=== PATIENT | female | born 1935 | race Hispanic/Latino ===

== ENCOUNTER 2017-05-30 10:33 | Emergency (ER) | payer MEDICARE ==
[2017-05-30 11:48] LABS: BASOPHILS % (AUTO) 0.4 % (0.0-5.0); EOSINOPHILS % (AUTO) 0.8 % (0.0-8.0); HEMATOCRIT 37.3 % (36-48); LYMPHOCYTES % (AUTO) 12.6 % (21.0-51.0); MEAN CORPUSCULAR HEMOGLOBIN 29.4 pg (27.0-33.0); MEAN CORPUSCULAR HGB CONC 33.5 g/dL (32.0-36.0); MEAN CORPUSCULAR VOLUME 87.8 fL (79-99); MONOCYTES % (AUTO) 7.9 % (3.0-13.0); NEUTROPHILS % (AUTO) 78.3 % (40.0-77.0); PLATELET COUNT (AUTO) 220 K/uL (130-400); RED BLOOD CELL COUNT(AUTO) 4.25 MIL/uL (4.00-5.50); RED CELL DISTRIBUTION WIDTH 14.3 % (11.0-15.5); WHITE BLOOD COUNT (AUTO) 11.8 K/uL (4.8-10.8)
[2017-05-30 12:01] LABS: ALBUMIN 3.3 g/dL (3.5-5.0); BILIRUBIN,TOTAL 0.6 mg/dL (0.2-1.0); TOTAL PROTEIN, SERUM 7.9 g/dL (6.0-8.3)
== END 2017-05-30 13:42 | disposition home or self-care (01) ==
LOC: EDH 10:33
DX: R19.7 Diarrhea, unspecified (principal); I10 Essential (primary) hypertension; Z98.890 Other specified postprocedural states
CPT/HCPCS: 36415; 80053; 85025

== ENCOUNTER 2018-04-08 09:56 | Emergency (ER) | payer MEDICARE ==
[2018-04-08] MEDS ORDERED: DiphenhydrAMINE HCL 50 MG/ML VIAL ONE (10:31)
[2018-04-08] MEDS ORDERED: FAMOTIDINE/PF 20 MG/2 ML VIAL IV ONE (10:32)
[2018-04-08] MEDS ORDERED: METHYLPREDNISOLONE SOD SUCC 125MG/2ML VIAL ONE (10:32)
[2018-04-08 10:37] LABS: BASOPHILS % (AUTO) 0.7 % (0.0-5.0); EOSINOPHILS % (AUTO) 2.2 % (0.0-8.0); HEMATOCRIT 38.1 % (36-48); LYMPHOCYTES % (AUTO) 22.7 % (21.0-51.0); MEAN CORPUSCULAR HEMOGLOBIN 28.4 pg (27.0-33.0); MEAN CORPUSCULAR HGB CONC 32.2 g/dL (32.0-36.0); MEAN CORPUSCULAR VOLUME 88.2 fL (79-99); MONOCYTES % (AUTO) 5.3 % (3.0-13.0); NEUTROPHILS % (AUTO) 69.1 % (40.0-77.0); PLATELET COUNT (AUTO) 181 K/uL (130-400); RED BLOOD CELL COUNT(AUTO) 4.32 MIL/uL (4.00-5.50); RED CELL DISTRIBUTION WIDTH 13.8 % (11.0-15.5); WHITE BLOOD COUNT (AUTO) 8.2 K/uL (4.8-10.8)
[2018-04-08 10:50] LABS: CREATININE 1.1 mg/dL (0.5-1.5); POTASSIUM 3.4 mmol/L (3.5-5.1)
[2018-04-08 10:51] LABS: ALBUMIN 3.2 g/dL (3.5-5.0); BILIRUBIN,TOTAL 0.4 mg/dL (0.2-1.0); TOTAL PROTEIN, SERUM 7.5 g/dL (6.0-8.3)
[2018-04-08 10:59] LABS: APPEARANCE,URINE Clear (CLEAR); BILIRUBIN,URINE Negative (NEGATIVE); COLOR,URINE Yellow (YELLOW); GLUCOSE, URINE (UA) Negative (NEGATIVE); KETONES,URINE Negative (NEGATIVE); LEUKOCYTE ESTERASE ,URINE Large (NEGATIVE); NITRATE,URINE Negative (NEGATIVE); OCCULT BLOOD,URINE Trace (NEGATIVE); PROTEIN,URINE Negative (NEGATIVE)
[2018-04-08 11:33] LABS: BACTERIA,URINE Rare /HPF (None Seen); RBC,URINE 0-1 /HPF (0-1)
[2018-04-08 11:34] LABS: SQUAMOUS EPITHELIAL CELL,UR Rare /HPF (0-2)
== END 2018-04-08 12:05 | disposition home or self-care (01) ==
LOC: EDH 09:56
DX: L50.0 Allergic urticaria (principal); I10 Essential (primary) hypertension
CPT/HCPCS: 36415; 71045; 80053; 81001; 82550; 84484; 85025; 93005; 96374; 96375; 99284; J1200; J2930; J3490

== ENCOUNTER 2018-06-08 14:13 | Inpatient (IN) | payer MEDICARE ==
[~2018-06-08] VITALS: Ht 152.4 cm; Wt 84.5 kg
[2018-06-08] MEDS ORDERED: ONDANSETRON HCL 4 MG/2 ML VIAL ONE (14:50)
[2018-06-08] MEDS ORDERED: SODIUM CHLORIDE 0.9% 200 ML IV ONE (14:53)
[2018-06-08] MEDS ORDERED: SODIUM CHLORIDE 0.9% 50 ML IV ONE (14:53)
[2018-06-08 16:06] LABS: CREATININE 1.7 mg/dL (0.5-1.5); INR 1.09 (0.85-1.15); POTASSIUM 3.3 mmol/L (3.5-5.1); PROTHROMBIN TIME 11.4 SEC (9.6-11.6)
[2018-06-08 16:16] LABS: ALBUMIN 3.3 g/dL (3.5-5.0); BILIRUBIN,TOTAL 0.7 mg/dL (0.2-1.0); TOTAL PROTEIN, SERUM 7.7 g/dL (6.0-8.3)
[2018-06-08 16:34] LABS: APPEARANCE,URINE SL CLOUDY (CLEAR); BILIRUBIN,URINE SMALL (NEGATIVE); COLOR,URINE ORANGE (YELLOW); GLUCOSE, URINE (UA) NEGATIVE (NEGATIVE); KETONES,URINE 5 mg/dL (NEGATIVE); LEUKOCYTE ESTERASE ,URINE SMALL (NEGATIVE); NITRATE,URINE NEGATIVE (NEGATIVE); OCCULT BLOOD,URINE MODERATE (NEGATIVE); PH,URINE 5.5 (5.0-8.0); PROTEIN,URINE TRACE (NEGATIVE)
[2018-06-08 16:43] LABS: FINE GRANULAR CASTS,URINE 0-2 /LPF (None Seen)
[2018-06-08 16:44] LABS: MUCUS,URINE Few LPF (None Seen)
[2018-06-08 16:45] LABS: BACTERIA,URINE Moderate /HPF (None Seen); SQUAMOUS EPITHELIAL CELL,UR 30-50 /HPF (0-2)
[2018-06-08] MEDS ORDERED: HYDRALAZINE HCL 20 MG/ML VIAL IV PRN (16:45)
[2018-06-08] MEDS ORDERED: MORPHINE SULFATE 2 MG/ML 1ML SYG IV PRN (16:45)
[2018-06-08] MEDS ORDERED: LEVOFLOXACIN 500 MG/D5W 100 ML 100 ML IV SCH ×2 (16:45→21:00)
[2018-06-08] MEDS ORDERED: ACETAMINOPHEN 325 MG TAB PO PRN ×2 (16:45)
[2018-06-08] MEDS ORDERED: ONDANSETRON HCL 4 MG/2 ML VIAL IV PRN (16:45)
[2018-06-08] MEDS ORDERED: METRONIDAZOLE 500MG/100ML BAG 100 ML IV SCH (16:45)
[2018-06-08 16:57] LABS: BASOPHILS % (AUTO) 0.1 % (0.0-5.0); HEMATOCRIT 43.7 % (36-48); LYMPHOCYTES % (AUTO) 5.3 % (21.0-51.0); MEAN CORPUSCULAR HEMOGLOBIN 28.2 pg (27.0-33.0); MEAN CORPUSCULAR HGB CONC 32.4 g/dL (32.0-36.0); MEAN CORPUSCULAR VOLUME 87.2 fL (79-99); MONOCYTES % (AUTO) 3.3 % (3.0-13.0); NEUTROPHILS % (AUTO) 91.3 % (40.0-77.0); PLATELET COUNT (AUTO) 185 K/uL (130-400); RED BLOOD CELL COUNT(AUTO) 5.01 MIL/uL (4.00-5.50); RED CELL DISTRIBUTION WIDTH 14.4 % (11.0-15.5)
[2018-06-08] MEDS ORDERED: POTASSIUM CHLORIDE 10% ELIXIR 20 MEQ/15 ML UDCUP ONE (16:57)
[2018-06-08] MEDS ORDERED: MAGNESIUM OXIDE 400 MG TABLET PO ONE (16:57)
[2018-06-08] MEDS ORDERED: ACETAMINOPHEN 325 MG TAB ONE (16:58)
[2018-06-08] MEDS ORDERED: HYOSCYAMINE SULFATE 0.125 MG TAB.SUBL SL ONE (16:58)
[2018-06-08 17:16] LABS: CRP QUANTITATIVE 74.6 mg/L (0.00-9.0); MAGNESIUM 2.5 mg/dL (1.80-2.40); PHOSPHORUS 4.7 mg/dL (2.5-4.9); THYROID STIMULATING HORMONE 0.53 uIU/mL (0.36-3.74)
[2018-06-08 19:00] VITALS: BP 142/56
[2018-06-08] MEDS ORDERED: LORA10CA9 PO (19:44)
[2018-06-08] MEDS ORDERED: METO-408 PO (19:44)
[2018-06-08] MEDS ORDERED: FURO20TA4 PO (19:44)
[2018-06-08] MEDS ORDERED: ASPI-555 PO (19:44)
[2018-06-08] MEDS ORDERED: LISI1TAB11 PO (19:44)
[2018-06-08] MEDS: METRONIDAZOLE 500 MG TABLET PO SCH (20:33)
[2018-06-08] MEDS: SODIUM CHLORIDE 0.9% 1000ML 1,000 ML IV SCH (20:33)
[2018-06-08] MEDS: METOPROLOL TARTRATE 25 MG TAB PO SCH (20:33)
[2018-06-08] MEDS: FAMOTIDINE/PF 20 MG/2 ML VIAL IV SCH (20:53)
[2018-06-09] VITALS (7 sets, daily range): BP systolic 105–149; BP diastolic 38–56
[2018-06-09 00:51] LABS: CREATINE KINASE, TOTAL 138 U/L (21-232); MYOGLOBIN 521 ng/mL (10-92); TROPONIN I < 0.04 ng/mL (0.00-0.06)
--- NOTE | 2018-06-09 02:01 | NUR ---
BLEEDING Pt went to the bathroom,notified per staff,pt has bright red blood coming out.Daughter states pt has Hx of Diverticulitis.Notified Francisco CONTE.he ordered H and h in am.
[2018-06-09] MEDS: SODIUM CHLORIDE 0.9% 1000ML 1,000 ML IV SCH ×4 (02:17→21:10)
[2018-06-09 04:40] LABS: HEMATOCRIT 34.9 % (36-48)
[2018-06-09] MEDS: METRONIDAZOLE 500 MG TABLET PO SCH ×3 (05:13→21:10)
[2018-06-09] MEDS ORDERED: ASPIRIN 325MG EC TAB 325 MG TABLET.DR PO SCH (09:00)
[2018-06-09] MEDS: NITROGLYCERIN 0.2 MG/HR PATCH TD SCH (09:00)
[2018-06-09] MEDS: METOPROLOL TARTRATE 25 MG TAB PO SCH ×2 (09:00→21:10)
[2018-06-09 09:30] LABS: CREATINE KINASE, TOTAL 148 U/L (21-232); MYOGLOBIN 415 ng/mL (10-92); TROPONIN I < 0.04 ng/mL (0.00-0.06)
[2018-06-09] MEDS: FAMOTIDINE/PF 20 MG/2 ML VIAL IV SCH (10:11)
--- NOTE | 2018-06-09 10:14 | NUR ---
did not give her med of asa .325 ,mg po due to some active bleeding ,, lopressor . 25 mg po . b/p of 90/40 hr of 64, and nitroglycerin 0.2 mg patch. . due to low b/p ..
--- NOTE | 2018-06-09 11:00 | NUR ---
PT HAD SOME, SM MUCOUS , BLOODY BM.
--- NOTE | 2018-06-09 13:33 | NUR ---
DCP CM met with pt discussed dc plans. Pt is independent prior to admission, lives at home with spouse. Pt has a cane, shower chair, and provider. Denies any equipments/service. Pt feels safe to go back home, spouse and son able to assist with transportation and needs as necessary. DC plan to home once stable. CM to cont to follow up. Addendum: 06/09/18 at 1335 by MELONY ALMANZAR LVN CM Amended: Links added.
--- NOTE | 2018-06-09 14:26 | NUR ---
RD Notification - Trigger Patient with Clear Liquid Diet therapy with no nausea/vomiting per RN. Upon visit, patient sleeping with rppmywgy-ln-gcj present. RD provided diet education for diverticulitis. Dcyhtlwj-hu-msq verbalized understanding. Patient with fair PO(50%) however reports patient stated not hungry this AM. RD rec to add Ensure Clear QD for increased energy intake. RD to monitor serum glucose levels. Patient LBM 06/08/18. Patient monitored labs: K 3.3, BUN 59, Cr 1.7, GFR 30, Glu 155, Alb 3.3. RD to continue to monitor. Please notify RD as nutritional concerns arise. Addendum: 06/09/18 at [address] RD Amended: Links added.
--- NOTE | 2018-06-09 15:04 | NUR ---
Diet Education VIKTOR provided Diverticulitis Diet Education to Patient's ufwloqfn-fm-owj as Patient was sleeping at time of visit. VIKTOR provided Mexican and [place]ian reference materials. Optzaskb-vy-xkk verbalized understanding. RD to follow-up. Addendum: 06/09/18 at [address] RD Amended: Links added.
[2018-06-09] MEDS ORDERED: LEVOFLOXACIN 250 MG/D5W 50ML IVPB SCH (21:00)
--- NOTE | 2018-06-10 00:14 | NUR ---
SLEEP Pt sleeping in bed,voiced no complaints of pain or discomfort.
[2018-06-10 04:22] LABS: HEMATOCRIT 29.9 % (36-48); MEAN CORPUSCULAR HEMOGLOBIN 28.9 pg (27.0-33.0); MEAN CORPUSCULAR HGB CONC 33.1 g/dL (32.0-36.0); MEAN CORPUSCULAR VOLUME 87.2 fL (79-99); PLATELET COUNT (AUTO) 128 K/uL (130-400); RED BLOOD CELL COUNT(AUTO) 3.43 MIL/uL (4.00-5.50); RED CELL DISTRIBUTION WIDTH 14.7 % (11.0-15.5); WHITE BLOOD COUNT (AUTO) 9.9 K/uL (4.8-10.8)
[2018-06-10 04:31] LABS: CREATININE 1.3 mg/dL (0.5-1.5)
[2018-06-10 04:41] VITALS: BP 126/50
[2018-06-10] MEDS ORDERED: LIDOCAINE HCL-MPF 1% 2ML VIAL IVP PRN (05:00)
[2018-06-10] MEDS ORDERED: POTASSIUM CHLORIDE 10% ELIXIR 20 MEQ/15 ML UDCUP PO PRN (05:00)
[2018-06-10] MEDS ORDERED: POTASSIUM CHLORIDE 20MEQ/100ML 100 ML IV PRN (05:00)
[2018-06-10] MEDS: METRONIDAZOLE 500 MG TABLET PO SCH ×2 (05:24→13:07)
[2018-06-10] MEDS: SODIUM CHLORIDE 0.9% 1000ML 1,000 ML IV SCH (05:25)
[2018-06-10 07:30] VITALS: BP 120/51
[2018-06-10] MEDS ORDERED: LEVO500T2 PO (08:10)
[2018-06-10] MEDS ORDERED: METR-172 PO (08:10)
[2018-06-10] MEDS ORDERED: LORATADINE 10 MG TABLET PO SCH (09:00)
[2018-06-10] MEDS ORDERED: METOPROLOL TARTRATE 25 MG TAB PO SCH (09:00)
[2018-06-10] MEDS ORDERED: HYDROCHLOROTHIAZIDE 25 MG TABLET PO SCH (09:00)
[2018-06-10] MEDS ORDERED: FUROSEMIDE 20 MG TABLET PO SCH (09:00)
[2018-06-10] MEDS ORDERED: ASPIRIN 81MG TAB.CHEW PO SCH (09:00)
[2018-06-10] MEDS: NITROGLYCERIN 0.2 MG/HR PATCH TD SCH (09:00)
[2018-06-10] MEDS ORDERED: LISINOPRIL 20 MG TABLET PO SCH (09:00)
[2018-06-10] MEDS: FAMOTIDINE/PF 20 MG/2 ML VIAL IV SCH (09:16)
[2018-06-10] MEDS: METOPROLOL TARTRATE 25 MG TAB PO SCH (09:16)
[2018-06-10] MEDS: POTASSIUM CHLORIDE 20 MEQ ERTAB PO PRN ×3 (10:14→13:08)
[2018-06-10 11:00] VITALS: BP 135/65
[2018-06-10 16:00] VITALS: BP 125/48
--- NOTE | 2018-06-10 17:32 | NUR ---
DISCHARGE PATIENT/DAUGHTER GIVEN DISCHARGE INSTRUCTIONS VIA TEACH BACK. IV DISCONTINUED WITH TIP INTACT. RX FOR LEVAQUIN 250 MG 1 TAP PO X 7 DAYS AND FLAGYL 500MG 1 TAB PO X 7 DAYS. FOLLOW UP APPTS WITH NICOLAS[facility] POSEY AND LIST GIVEN FOR GI REFERRALS. DAUGHTER AT BEDSIDE TO TRANSFER PATIENT HOME.
== END 2018-06-10 17:41 | disposition home or self-care (01) | DRG 391 ==
LOC: EDH 14:13 → EDHIP 16:40 → 3AH 19:07
PROVIDERS: ADMIT Internal Medicine; ATTEND Internal Medicine
DX: K57.32 Diverticulitis of large intestine without perforation or abscess without bleeding (principal); N17.0 Acute kidney failure with tubular necrosis; N39.0 Urinary tract infection, site not specified; D62 Acute posthemorrhagic anemia; I10 Essential (primary) hypertension; K52.9 Noninfective gastroenteritis and colitis, unspecified
CPT/HCPCS: 36415; 71045; 74176; 80048; 80053; 81001; 82150; 82270; 82550; 83690; 83735; 83874; 83880; 84100; 84132; 84443; 84484; 85014; 85018; 85025; 85027; 85610; 85730; 86140; 93005; G0378; J1956; J2405; J3480; J3490; J7030

== ENCOUNTER 2018-06-16 20:24 | Observation (INO) | payer MEDICARE ==
[~2018-06-16] VITALS: Ht 157.5 cm; Wt 82.6 kg
[~2018-06-16 20:24] MED LIST: ASPI-555 PO; FURO20TA4 PO; LEVO500T2 PO; LISI1TAB11 PO; LORA10CA9 PO; METO-408 PO; METR-172 PO
[2018-06-16 21:41] LABS: BASOPHILS % (AUTO) 0.4 % (0.0-5.0); EOSINOPHILS % (AUTO) 1.3 % (0.0-8.0); HEMATOCRIT 38.1 % (36-48); LYMPHOCYTES % (AUTO) 8.9 % (21.0-51.0); MEAN CORPUSCULAR HEMOGLOBIN 28.1 pg (27.0-33.0); MEAN CORPUSCULAR HGB CONC 32.2 g/dL (32.0-36.0); MEAN CORPUSCULAR VOLUME 87.1 fL (79-99); MONOCYTES % (AUTO) 6.6 % (3.0-13.0); NEUTROPHILS % (AUTO) 82.8 % (40.0-77.0); NUCLEATED RED BLOOD CELLS 0.1 % (0.0-0.19); PLATELET COUNT (AUTO) 239 K/uL (130-400); RED BLOOD CELL COUNT(AUTO) 4.38 MIL/uL (4.00-5.50); RED CELL DISTRIBUTION WIDTH 14.6 % (11.0-15.5); WHITE BLOOD COUNT (AUTO) 15.5 K/uL (4.8-10.8)
[2018-06-16 21:54] LABS: INR 1.12 (0.85-1.15); PARTIAL THROMBOPLASTIN TIME 25.4 SEC (26.3-35.5); PROTHROMBIN TIME 11.7 SEC (9.6-11.6)
[2018-06-16 21:55] LABS: CREATININE 1.6 mg/dL (0.5-1.5); POTASSIUM 4.4 mmol/L (3.5-5.1)
[2018-06-16 21:57] LABS: ALBUMIN 2.7 g/dL (3.5-5.0); BILIRUBIN,TOTAL 0.4 mg/dL (0.2-1.0); TOTAL PROTEIN, SERUM 6.7 g/dL (6.0-8.3)
[2018-06-16 23:16] LABS: APPEARANCE,URINE Clear (CLEAR); BILIRUBIN,URINE Negative (NEGATIVE); COLOR,URINE Dark Yellow (YELLOW); GLUCOSE, URINE (UA) Negative (NEGATIVE); KETONES,URINE Trace mg/dL (NEGATIVE); LEUKOCYTE ESTERASE ,URINE Trace (NEGATIVE); NITRATE,URINE Negative (NEGATIVE); OCCULT BLOOD,URINE Negative (NEGATIVE); PH,URINE 6.5 (5.0-8.0); PROTEIN,URINE Negative (NEGATIVE)
[2018-06-16 23:25] LABS: BACTERIA,URINE None Seen /HPF (None Seen); MUCUS,URINE Rare LPF (None Seen); RBC,URINE None Seen /HPF (0-1); SQUAMOUS EPITHELIAL CELL,UR Few /HPF (0-2); WBC,URINE 0-1 /HPF (0-1)
[2018-06-17] MEDS ORDERED: LACTATED RINGERS 1000ML 1,000 ML IV ONE (02:29)
[2018-06-17] MEDS ORDERED: ASPIRIN 81MG TAB.CHEW PO SCH (09:00)
[2018-06-17] MEDS ORDERED: PANTOPRAZOLE SODIUM 40 MG TABLET.DR PO ONE (09:13)
[2018-06-17] MEDS ORDERED: LEVO250T59 PO (10:05)
--- NOTE | 2018-06-17 11:35 | NUR ---
SONNY Blackburn met [facility] pt and son Corey Bhatia [phone]. Pt lives with her daughter Angeline Lanzan [phone]. Pt states she is independent, has cane walker and shower chair, no HH. Daughter transports as needed. Plan is home at mt Addendum: 06/17/18 at 1137 by CARLOS PAYNE Amended: Links added.
[2018-06-17] MEDS ORDERED: ASPIRIN 81MG TAB.CHEW ONE (11:48)
[2018-06-17] MEDS ORDERED: ZOSYN 3.375GM+NS 50ML 50 ML IV ONE (11:49)
[2018-06-17] MEDS: ZOSYN 3.375GM+NS 50ML 50 ML IV SCH ×2 (13:00→22:01)
[2018-06-17 13:30] VITALS: BP 124/58
[2018-06-17 16:00] VITALS: BP 119/46
[2018-06-17] MEDS ORDERED: ONDANSETRON HCL 4 MG/2 ML VIAL IVP PRN (17:30)
[2018-06-17] MEDS: LACTATED RINGERS 1000ML 1,000 ML IV SCH (17:30)
[2018-06-17] MEDS ORDERED: ACETAMINOPHEN 325 MG TAB PO PRN (17:30)
[2018-06-17 19:05] VITALS: BP 122/50
[2018-06-17] MEDS: METOPROLOL TARTRATE 25 MG TAB PO SCH (22:01)
[2018-06-17 23:05] VITALS: BP 125/62
[2018-06-18 03:05] VITALS: BP 126/60
[2018-06-18] MEDS: ZOSYN 3.375GM+NS 50ML 50 ML IV SCH (05:39)
[2018-06-18] MEDS: LACTATED RINGERS 1000ML 1,000 ML IV SCH (05:40)
[2018-06-18 07:00] VITALS: BP 153/67
[2018-06-18] MEDS: METOPROLOL TARTRATE 25 MG TAB PO SCH (08:48)
[2018-06-18] MEDS ORDERED: PANTOPRAZOLE SODIUM 40 MG TABLET.DR PO SCH (09:00)
[2018-06-18] MEDS ORDERED: LISINOPRIL 20 MG TABLET PO SCH (09:00)
[2018-06-18] MEDS ORDERED: ASPIRIN 81 MG EC TAB PO SCH (09:00)
[2018-06-18] MEDS ORDERED: FUROSEMIDE 20 MG TABLET PO SCH (09:00)
--- NOTE | 2018-06-18 11:07 | NUR ---
Pt Discharge Update Pt d/c home safely, discharge instruction given, pt verbalized understanding, transport provided by daughter, IV out, no complication noted, pt sent down in w/c.
== END 2018-06-18 10:45 | disposition home or self-care (01) ==
LOC: EDH 20:24 → EDHIP 06-17 00:08 → 3CH 06-17 13:45
PROVIDERS: ADMIT Internal Medicine; ATTEND Internal Medicine
DX: K52.9 Noninfective gastroenteritis and colitis, unspecified (principal); I95.9 Hypotension, unspecified; I10 Essential (primary) hypertension; R55 Syncope and collapse; I73.9 Peripheral vascular disease, unspecified; R32 Unspecified urinary incontinence
CPT/HCPCS: 36415; 70450; 71045; 80053; 81001; 82550; 84484; 85025; 85610; 85730; 86850; 86900; 86901; 93005; 96361; 96365; 96366; 99284; G0378 ×35; J2543 ×3; J7120 ×2

== ENCOUNTER → 2018-06-22 | Outpatient (CLI) | payer MEDICARE ==
[~2018-06-22] MED LIST changes: +LEVO250T59 PO
== END | disposition home or self-care (01) ==
LOC: RAH 15:09
PROVIDERS: ATTEND Nurse Practitioner Family
DX: R07.81 Pleurodynia (principal)
CPT/HCPCS: 71100

== ENCOUNTER 2021-11-09 17:25 | Emergency (ER) | payer MEDICARE ==
[~2021-11-09] VITALS: Ht 157.5 cm; Wt 84.4 kg
[~2021-11-09 17:25] MED LIST changes: -ASPI-555 PO; +ASPI-556 PO; -LEVO250T59 PO; -LEVO500T2 PO; -LISI1TAB11 PO; +LISI1TAB51 PO; -METR-172 PO
[2021-11-09 17:54] LABS: BASOPHILS % (AUTO) 0.5 % (0.0-5.0); EOSINOPHILS % (AUTO) 3.1 % (0.0-8.0); HEMATOCRIT 35.5 % (36-48); LYMPHOCYTES % (AUTO) 20.2 % (21.0-51.0); MEAN CORPUSCULAR HEMOGLOBIN 28.6 pg (27.0-33.0); MEAN CORPUSCULAR HGB CONC 32.4 g/dL (32.0-36.0); MEAN CORPUSCULAR VOLUME 88.3 fL (79-99); NEUTROPHILS % (AUTO) 67.1 % (40.0-77.0); PLATELET COUNT (AUTO) 282 K/uL (130-400); RED BLOOD CELL COUNT(AUTO) 4.02 MIL/uL (4.00-5.50); RED CELL DISTRIBUTION WIDTH 13.3 % (11.0-15.5); WHITE BLOOD COUNT (AUTO) 11.3 K/uL (4.8-10.8)
[2021-11-09] MEDS ORDERED: MORPHINE 2 MG SYG IVP ONE (18:00)
[2021-11-09] MEDS ORDERED: ONDANSETRON 4MG INJ IVP ONE (18:00)
[2021-11-09 18:05] LABS: INR 1.05 (0.85-1.15); PROTHROMBIN TIME 11.4 SEC (9.6-11.6)
[2021-11-09 18:06] LABS: PARTIAL THROMBOPLASTIN TIME 24.8 SEC (26.3-35.5)
[2021-11-09 18:19] LABS: CREATININE 2.6 mg/dL (0.5-1.5); POTASSIUM 4.7 mmol/L (3.5-5.1)
[2021-11-09 18:24] LABS: TOTAL PROTEIN, SERUM 8.1 g/dL (6.0-8.3)
[2021-11-09 19:15] VITALS: BP 121/55
[2021-11-09 19:33] LABS: APPEARANCE,URINE CLEAR (CLEAR); BILIRUBIN,URINE NEGATIVE (NEGATIVE); COLOR,URINE YELLOW (YELLOW); GLUCOSE, URINE (UA) NEGATIVE (NEGATIVE); KETONES,URINE NEGATIVE (NEGATIVE); LEUKOCYTE ESTERASE ,URINE TRACE (NEGATIVE); NITRATE,URINE NEGATIVE (NEGATIVE); OCCULT BLOOD,URINE LARGE (NEGATIVE); PROTEIN,URINE NEGATIVE (NEGATIVE); UROBILINOGEN,URINE 0.2 mg/dL (0.2-1.0)
[2021-11-09] MEDS ORDERED: DOCU-116 PO (19:42)
[2021-11-09] MEDS ORDERED: ACET-2079 PO (19:42)
[2021-11-09 19:54] LABS: BACTERIA,URINE Few /HPF (None Seen); SQUAMOUS EPITHELIAL CELL,UR Few /HPF (0-2)
[2021-11-15] MEDS ORDERED: ATOR10 PO (19:54)
[2021-11-16] MEDS ORDERED: LISI20TA24 PO (00:10)
[2021-11-16] MEDS ORDERED: ATOR20TA65 PO (00:10)
== END 2021-11-09 19:56 | disposition home or self-care (01) ==
LOC: EDH 17:25
DX: I73.9 Peripheral vascular disease, unspecified (principal); I10 Essential (primary) hypertension; Z88.1 Allergy status to other antibiotic agents
CPT/HCPCS: 99285; 96374; 93971; 93926; 96375; 80053; 85025; 85610; 85730; 81001; 36415; 73630; J2405

== ENCOUNTER 2022-02-22 19:10 | Inpatient (IN) | payer MEDICARE ==
[~2022-02-22] VITALS: Ht 157.5 cm; Wt 72.1 kg
[~2022-02-22 19:10] MED LIST changes: +ACET-2079 PO; +ATOR20TA65 PO; +DOCU-116 PO; -FURO20TA4 PO; -LISI1TAB51 PO; +LISI20TA24 PO; -LORA10CA9 PO; -METO-408 PO
[2022-02-22 19:45] LABS: BASOPHILS % (AUTO) 0.3 % (0.0-5.0); EOSINOPHILS % (AUTO) 2.7 % (0.0-8.0); HEMATOCRIT 40.9 % (36-48); LYMPHOCYTES % (AUTO) 14.6 % (21.0-51.0); MEAN CORPUSCULAR HGB CONC 30.1 g/dL (32.0-36.0); MEAN CORPUSCULAR VOLUME 86.5 fL (79-99); MONOCYTES % (AUTO) 2.8 % (3.0-13.0); NEUTROPHILS % (AUTO) 78.3 % (40.0-77.0); PLATELET COUNT (AUTO) 311 K/uL (130-400); RED BLOOD CELL COUNT(AUTO) 4.73 MIL/uL (4.00-5.50); RED CELL DISTRIBUTION WIDTH 17.2 % (11.0-15.5)
[2022-02-22 19:54] LABS: CREATININE 1.5 mg/dL (0.5-1.5); POTASSIUM 3.9 mmol/L (3.5-5.1)
[2022-02-22 19:55] LABS: INR 1.07 (0.85-1.15); PROTHROMBIN TIME 11.6 SEC (9.6-11.6)
[2022-02-22 19:57] LABS: PARTIAL THROMBOPLASTIN TIME 23.2 SEC (26.3-35.5)
[2022-02-22 19:59] LABS: APPEARANCE,URINE TURBID (CLEAR); BILIRUBIN,URINE NEGATIVE (NEGATIVE); COLOR,URINE YELLOW (YELLOW); GLUCOSE, URINE (UA) 100 mg/dL (NEGATIVE); KETONES,URINE NEGATIVE (NEGATIVE); LEUKOCYTE ESTERASE ,URINE LARGE Leu/uL (NEGATIVE); NITRATE,URINE NEGATIVE (NEGATIVE); OCCULT BLOOD,URINE MODERATE (NEGATIVE); PH,URINE 7.5 (5.0-8.0); PROTEIN,URINE >=300 mg/dL (NEGATIVE); UROBILINOGEN,URINE 0.2 mg/dL (0.2-1.0)
[2022-02-22 20:00] LABS: ALBUMIN 2.7 g/dL (3.5-5.0); MAGNESIUM 1.9 mg/dL (1.80-2.40); TOTAL PROTEIN, SERUM 7.3 g/dL (6.0-8.3)
[2022-02-22 20:17] LABS: BACTERIA,URINE Many /HPF (None Seen); MUCUS,URINE Few LPF (None Seen); SQUAMOUS EPITHELIAL CELL,UR Few /HPF (0-2); WBC,URINE TNTC /HPF (0-1)
[2022-02-22] MEDS ORDERED: CEFTRIAXONE 1G VIAL IVP STA (20:20)
[2022-02-22] MEDS ORDERED: LACTATED RINGERS 1000ML 1,503 ML IV ONE (22:30)
[2022-02-22 22:53] LABS: HEMOGLOBIN A1C 5.5 % (4.0-6.0)
[2022-02-22] MEDS: ZOSYN 3.375GM+NS 50ML 50 ML IV SCH (22:54)
[2022-02-22] MEDS ORDERED: NITROGLYCERIN 0.4 MG SL TAB SL PRN (23:00)
[2022-02-22] MEDS ORDERED: ONDANSETRON 4MG INJ IV PRN (23:00)
[2022-02-22] MEDS ORDERED: ACETAMINOPHEN 325 MG TAB PO PRN ×2 (23:00)
[2022-02-23] VITALS (15 sets, daily range): BP systolic 60–152; BP diastolic 35–102
[2022-02-23] MEDS ORDERED: RENAL DOSE IV SCH (05:00)
[2022-02-23] MEDS ORDERED: LISI2.5T13 PO (05:35)
[2022-02-23] MEDS ORDERED: ALLO100T PO (05:43)
[2022-02-23] MEDS ORDERED: DIPH25 PO (05:43)
[2022-02-23] MEDS ORDERED: ACET325T51 PO (05:43)
[2022-02-23] MEDS ORDERED: DULO30CA2 PO (05:44)
[2022-02-23] MEDS ORDERED: APIX2.5T PO (05:44)
[2022-02-23] MEDS ORDERED: ERGOCALCIFEROL PO (05:51)
[2022-02-23] MEDS ORDERED: FURO20TA4 PO (05:51)
[2022-02-23] MEDS ORDERED: GABA-529 PO (05:51)
[2022-02-23] MEDS ORDERED: NIFE-40 PO (05:59)
[2022-02-23] MEDS ORDERED: ONDA-104 PO (05:59)
[2022-02-23] MEDS ORDERED: POTA-202 PO (05:59)
[2022-02-23] MEDS ORDERED: METO-408 PO (05:59)
[2022-02-23] MEDS ORDERED: PRED5TAB PO (06:23)
[2022-02-23 06:34] LABS: BASOPHILS % (AUTO) 0.3 % (0.0-5.0); EOSINOPHILS % (AUTO) 0.7 % (0.0-8.0); HEMATOCRIT 42.6 % (36-48); LYMPHOCYTES % (AUTO) 4.9 % (21.0-51.0); MEAN CORPUSCULAR VOLUME 86.4 fL (79-99); MONOCYTES % (AUTO) 2.4 % (3.0-13.0); PLATELET COUNT (AUTO) 284 K/uL (130-400); RED BLOOD CELL COUNT(AUTO) 4.93 MIL/uL (4.00-5.50); RED CELL DISTRIBUTION WIDTH 17.2 % (11.0-15.5); WHITE BLOOD COUNT (AUTO) 19.5 K/uL (4.8-10.8)
[2022-02-23 07:00] LABS: ALBUMIN 1.9 g/dL (3.5-5.0); CREATININE 1.9 mg/dL (0.5-1.5); MAGNESIUM 1.8 mg/dL (1.80-2.40); POTASSIUM 4.2 mmol/L (3.5-5.1); TOTAL PROTEIN, SERUM 5.8 g/dL (6.0-8.3)
[2022-02-23] MEDS ORDERED: FAMOTIDINE 20MG TAB PO SCH (09:00)
[2022-02-23] MEDS: HEPARIN 5,000 UNIT VIAL SQ SCH ×3 (09:52→21:57)
[2022-02-23] MEDS: ZOSYN 3.375GM+NS 50ML 50 ML IV SCH (11:25)
[2022-02-23] MEDS ORDERED: 0.9% NACL 500ML IV.SOLN 500 ML IV SCH (11:30)
[2022-02-23] MEDS: MEROPENEM 1 GM VIAL IVP SCH (13:47)
[2022-02-23] MEDS ORDERED: 0.9%NACL 1000ML 1,000 ML IV SCH (19:00)
[2022-02-23 19:18] LABS: ABG BASE EXCESS -19.9 mmol/L (-2.0-3.0); ABG HCO3 7.2 mmol/L (21.0-28.0); ABG OXYGEN SATURATION 99.7 % (95.0-99.0); ABG PCO2 21 mmHg (32-45)
[2022-02-23] MEDS ORDERED: SODIUM BICARB 50MEQ 50ML VIAL 100 ML ONE (19:49)
[2022-02-23] MEDS ORDERED: 0.9%NACL 50ML IV SCH (20:00)
[2022-02-23] MEDS ORDERED: SODIUM BICARB 50MEQ 50ML VIAL IV ONE (20:00)
[2022-02-23] MEDS ORDERED: CALCIUM GLUC 1GM/10ML VIAL IVPB SCH (20:00)
[2022-02-23] MEDS ORDERED: DEXTROSE 50%-WATER 50 ML DISP.SYRIN IV ONE (20:00)
[2022-02-23] MEDS ORDERED: [UNRECOGNIZED DRUG - OTHER] IV SCH (20:00)
[2022-02-23] MEDS ORDERED: INSULIN HUMULIN R 100 UNIT/ML 3ML SQ ONE (20:00)
[2022-02-23] MEDS ORDERED: CALCIUM GLUC IV SCH (20:00)
[2022-02-23] MEDS: NOREPINEPHRIN 4MG/NS 250ML 250 ML IV SCH ×2 (20:03→22:55)
[2022-02-23] MEDS ORDERED: CALCIUM GLUC 1GM/10ML VIAL ONE (20:26)
[2022-02-23] MEDS ORDERED: 0.9%NACL 1000ML 1,002 ML IV ONE (21:30)
[2022-02-23 21:48] LABS: ABG BASE EXCESS -16.9 mmol/L (-2.0-3.0); ABG HCO3 10.5 mmol/L (21.0-28.0); ABG OXYGEN SATURATION 99.7 % (95.0-99.0); ABG PCO2 30 mmHg (32-45)
[2022-02-23] MEDS: PHENYLEPHRINE HCL 10 MG in 0.9% NACL 250ML 250 ML IV PRN (22:08)
[2022-02-23] MEDS ORDERED: SODIUM BICARB 50MEQ 50ML VIAL IV STA (22:40)
[2022-02-23] MEDS: SODIUM BICARB 8.4% 50ML SYRING 150 MEQ in DEXTROSE 5%-WATER 1,000 ML IVP SCH (22:55)
[2022-02-24] VITALS (13 sets, daily range): BP systolic 56–166; BP diastolic 32–119
[2022-02-24] MEDS: MEROPENEM 1 GM VIAL IVP SCH (00:38)
[2022-02-24] MEDS: PHENYLEPHRINE HCL 10 MG in 0.9% NACL 250ML 250 ML IV PRN ×2 (02:42→05:42)
[2022-02-24] MEDS ORDERED: PHENYLEPHRINE HCL 10 MG/ML 1ML VIAL IV ONE ×3 (02:44→05:35)
[2022-02-24 04:01] LABS: BASOPHILS % (AUTO) 0.2 % (0.0-5.0); HEMATOCRIT 27.9 % (36-48); LYMPHOCYTES % (AUTO) 6.5 % (21.0-51.0); MEAN CORPUSCULAR HEMOGLOBIN 26.1 pg (27.0-33.0); MEAN CORPUSCULAR HGB CONC 29.4 g/dL (32.0-36.0); MEAN CORPUSCULAR VOLUME 88.9 fL (79-99); MONOCYTES % (AUTO) 1.3 % (3.0-13.0); NUCLEATED RED BLOOD CELLS 0.3 % (0.0-0.19); PLATELET COUNT (AUTO) 153 K/uL (130-400); RED BLOOD CELL COUNT(AUTO) 3.14 MIL/uL (4.00-5.50); RED CELL DISTRIBUTION WIDTH 17.2 % (11.0-15.5); WHITE BLOOD COUNT (AUTO) 11.9 K/uL (4.8-10.8)
[2022-02-24 04:20] LABS: ALBUMIN 0.9 g/dL (3.5-5.0); CARBON DIOXIDE 16 mmol/L (21-32); CHLORIDE 114 mmol/L (101-111); CREATININE 1.7 mg/dL (0.5-1.5); GLOMERULAR FILTR. RATE CALC 30 mL/min (>60); GLUCOSE,RANDOM 89 mg/dL (70-105); POTASSIUM 3.1 mmol/L (3.5-5.1); SODIUM SERUM 151 mmol/L (136-145); UREA NITROGEN, BLOOD 34 mg/dL (7-18)
[2022-02-24] MEDS: NOREPINEPHRIN 4MG/NS 250ML 250 ML IV SCH ×2 (04:22→06:11)
[2022-02-24 05:37] LABS: ALANINE AMINOTRANSFERASE 3396 U/L (12-78)
[2022-02-24] MEDS: SODIUM BICARB 8.4% 50ML SYRING 150 MEQ in DEXTROSE 5%-WATER 1,000 ML IVP SCH (05:42)
[2022-02-24 06:04] LABS: ASPARTATE AMINOTRANSFERASE 10096 U/L (10-37)
[2022-02-24] MEDS ORDERED: LORAZEPAM 2 MG/ML 1 ML VIAL IM PRN (06:30)
[2022-02-24] MEDS ORDERED: MORPHINE 2 MG SYG IVP PRN ×2 (06:30→08:30)
[2022-02-24] MEDS ORDERED: MORPHINE 2 MG SYG ONE (06:41)
[2022-02-24] MEDS ORDERED: LORAZEPAM 2 MG/ML 1 ML VIAL ONE (06:46)
[2022-02-24] MEDS ORDERED: LORAZEPAM 2 MG/ML 1 ML VIAL IVP PRN (08:30)
== END 2022-02-24 09:23 | DRG 871 ==
LOC: EDH 19:10 → EDHIP 22:32 → 4DH 02-23 04:35 → 2BH 02-23 20:01
PROVIDERS: ADMIT Internal Medicine; ATTEND Internal Medicine
DX: A41.50 Gram-negative sepsis, unspecified (principal); G92.8 Other toxic encephalopathy; R65.21 Severe sepsis with septic shock; K55.9 Vascular disorder of intestine, unspecified; N12 Tubulo-interstitial nephritis, not specified as acute or chronic; N17.9 Acute kidney failure, unspecified; E87.20 Acidosis, unspecified; N39.0 Urinary tract infection, site not specified; Z20.822 Contact with and (suspected) exposure to COVID-19; Z66 Do not resuscitate; E16.2 Hypoglycemia, unspecified; N18.9 Chronic kidney disease, unspecified; E78.5 Hyperlipidemia, unspecified; I12.9 Hypertensive chronic kidney disease with stage 1 through stage 4 chronic kidney disease, or unspecified chronic kidney disease; E86.0 Dehydration; I25.10 Atherosclerotic heart disease of native coronary artery without angina pectoris; M19.90 Unspecified osteoarthritis, unspecified site; I48.91 Unspecified atrial fibrillation; Z51.5 Encounter for palliative care
CPT/HCPCS: 36415; 36600; 70450; 71045; 74176; 80053; 81001; 82435; 82803; 82947; 82948; 83036; 83605; 83735; 84132; 84145; 84295; 84484; 85018; 85025; 85610; 85651; 85730; 86140; 87040; 87077; 87088; 87186; 87635; 87804; 93005; C9803; G0378; J0610; J0696; J1644; J1815; J2060; J2185; J2370; J2543; J3490; J7030; J7050; J7070